=== PATIENT | male | born 2000 | race Two or more races ===

== ENCOUNTER 2022-08-22 20:49 | Emergency (ER) | payer SELFPAY ==
[2022-08-22] MEDS ORDERED: Ketorolac 30 MG/ML SDV IM ONE (21:16)
[2022-08-22] MEDS ORDERED: diphenhydrAMINE 50 MG/ML SDV IM ONE (21:16)
[2022-08-22] MEDS ORDERED: Metoclopramide 10 MG/2 ML SDV IM ONE (21:16)
== END 2022-08-22 22:19 | disposition home or self-care (01) ==
LOC: JD.ED 20:49
DX: G44.209 Tension-type headache, unspecified, not intractable (principal)
CPT/HCPCS: 96372; 99283; J1200; J1885; J2765

== ENCOUNTER 2024-09-20 15:55 | Emergency (ER) | payer SELFPAY | END 2024-09-20 16:30 | disposition home or self-care (01) | LOC: JD.ED 15:55 | DX: Z02.89 Encounter for other administrative examinations (principal) | CPT/HCPCS: 99282; 99283 ==